=== PATIENT | male | born 1995 | race Caucasian/White ===

== ENCOUNTER 2020-02-26 19:23 | Emergency (ER) | payer OTHER ==
[~2020-02-26] VITALS: Ht 165.1 cm; Wt 59.0 kg
[~2020-02-26 19:23] MED LIST: PRED15SY PO
[2020-02-26] MEDS ORDERED: IBUP800 PO (20:04)
[2020-02-26] MEDS ORDERED: Robaxin-750750 MG PO (20:04)
== END 2020-02-26 20:21 | disposition home or self-care (01) ==
LOC: ER 19:23
DX: M62.830 Muscle spasm of back (principal); M54.2 Cervicalgia; F17.210 Nicotine dependence, cigarettes, uncomplicated; Z79.52 Long term (current) use of systemic steroids
CPT/HCPCS: 99283